=== PATIENT | male | born 1980 | race Caucasian/White ===

== ENCOUNTER → 2021-03-25 10:17 | Outpatient (CLI) | payer OTHER, SELFPAY ==
[2021-03-25 12:20] LABS: COVID19 -Nasal RAPID Negative (Negative)
== END ==
PROVIDERS: Visit Provider Family Medicine Sleep Medicine
DX: Z20.822 Contact with and (suspected) exposure to COVID-19 (principal)
CPT/HCPCS: 87635; C9803

== ENCOUNTER → 2021-03-26 13:21 | Outpatient (CLI) | payer OTHER, SELFPAY ==
--- NOTE | 2021-03-26 | DI.ECHO.S_ITS ---
[facility]---------+ [facility] +---------+ : : [address] : [address] : : : : [id number] : : : : Phone: [phone]+ Echocardiogram Report + + :Name: KENNEDY JUAREZ Study Date: 03/26/2021 Height: 74 in : :[facility] ReadingLocation: Weight: 255 lb : : Gender: Male BSA: 2.4 m2 : :: 1980 Age: 41 yrs BP: 134/91 mmHg: :Reason For Study: CHEST PAIN : :Ordering Physician: FORREST, : :MART Performed By: Violeta Paul : :Referring: MART JONES : + + Interpretation Summary 1) Normal left ventricular thickness, size, wall motion, and systolic function (EF 55-60%). 2) The right ventricle is normal in size and function. 3) No significant valvular abnormalities. 4) No prior Echo available for comparison. Procedure: A two-dimensional transthoracic echocardiogram with color flow and Doppler was performed. The study quality was technically adequate. There is no prior echocardiogram noted for this patient. The patient was in sinus rhythm with heart rates between 67-83 bpm during the exam. Left Ventricle: The left ventricle is normal in size and wall thickness. The ejection fraction is estimated to be 55-60%. Left ventricular systolic function appears normal without focal wall motion abnormalities. Right Ventricle: The right ventricle is normal in size and function. Atria: The left atrial size is normal. Right atrial size is normal. There is no Doppler evidence for an interatrial shunt. Mitral Valve: The mitral valve is normal in structure and function. There is trace mitral regurgitation. Aortic Valve: The aortic valve is trileaflet. The aortic valve opens well. There is no aortic valve stenosis. No aortic regurgitation is present. Tricuspid Valve: The tricuspid valve is normal in structure and function. There is trace tricuspid regurgitation. Pulmonary artery pressures cannot be estimated because of the lack of a measurable TR jet velocity but the IVC suggests a CVP of around 3 mmHg. Pulmonic Valve: The pulmonic valve leaflets are thin and pliable; valve motion is normal. There is mild pulmonic regurgitation. Great Vessels: The aortic root is normal size. The ascending aorta is at the upper limits of normal in size. The IVC is of normal diameter and collapses greater than 50% with a sniff. This suggests a low right atrial pressure of 3 mm Hg. Pericardium/ Pleura There is no pericardial effusion. There is no pleural effusion. MMode/2D Measurements & Calculations LVIDd: 5.2 cm LVOT diam: 2.5 cm LVIDs: 3.7 cm Ao root diam: 3.7 cm FS: 29.1 % asc Aorta Diam: 3.5 cm IVSd: 0.85 cm Ao Arch Diam (Prox Trans): 2.9 cm LVPWd: 0.76 cm LV white. diameter/BSA (cm/m^2): 2.2 LV sys. diameter/BSA (cm/m^2): 1.5 LA A2 area: 19.7 cm2 RA long axis: 5.2 cm LA A4 area: 17.4 cm2 RA area: 12.9 cm2 LA length (vol): 5.2 cm RA vol: 26.9 ml LA vol: 56.0 ml RA : 11.2 ml/m2 LA vol index: 23.2 ml/m2 IVC diam: 1.3 cm RVD1 (basal): 3.7 cm TAPSE: 2.5 cm Doppler Measurements & Calculations Ao V2 max: 104.8 cm/sec LVOT Max Jase: 81.7 cm/sec Ao V2 mean: 71.4 cm/sec LV V1 max P.7 mmHg Ao max P.4 mmHg LV V1 VTI: 16.5 cm Ao mean P.3 mmHg CLIFF(I,D): 3.8 cm2 Ao V2 VTI: 21.5 cm CLIFF(V,D): 3.8 cm2 sev ratio: 0.77 CLIFF indexed to BSA (cm^2/m^2): 1.6 MV E max jase: 77.7 cm/sec PA V2 max: 91.4 cm/sec MV A max jase: 91.0 cm/sec PA V2 mean: 57.7 cm/sec MV E/A: 0.85 PA mean P.6 mmHg Med Peak E' Jase: 6.5 cm/sec PA pr(Accel): 36.2 mmHg E/E' med: 11.9 Lat Peak E' Jase: 9.3 cm/sec E/E' lat: 8.4 E/e' average: 10.2 MV dec time: 0.22 sec SV(LVOT): 81.5 ml Reading Physician:05:39 PM
--- NOTE | 2021-03-26 20:19 | DI.NM.S_ITS ---
DATE OF SERVICE: 03/26/2021 PROCEDURE: Exercise stress test. INDICATION: Chest pain, palpitation. CARDIAC STRESS: The patient underwent exercise stress test under the supervision of an attending staff. The patient walked on El protocol for 12 minutes and 01 seconds, achieved maximum heart rate of 155, which was 87 percent of target heart rate. Normal blood pressure response. Baseline blood pressure 126/84. Peak blood pressure 174/88 mmHg. Achieved 12.8 METs of workload and functional aerobic impairment -13 percent. Baseline rhythm sinus. During stress, no convincing ischemic changes or arrhythmias seen. No anginal symptoms. The patient had knee pain. CONCLUSION: 1. Exercise stress test is negative for inducible ischemia. 2. Normal hemodynamic response. 3. Good exercise capacity. 4. No significant arrhythmias or anginal symptoms. Overall, low-risk exercise stress test. Leon Paul - BAKARI/lev/jeremy doc#: [id number]/job#: [id number] dd: 03/26/2021 18:05:00 dt: 03/26/2021 19:44:00 DICTATING /COPIES TO: Leandra Sanchez MD COPIES MNE: YONIS;
== END ==
PROVIDERS: Referring Provider Internal Medicine Cardiovascular Disease; Visit Provider Internal Medicine Cardiovascular Disease
DX: I37.1 Nonrheumatic pulmonary valve insufficiency (principal); R07.9 Chest pain, unspecified; R00.2 Palpitations; R06.02 Shortness of breath
CPT/HCPCS: 93017; 93306